=== PATIENT | male | born 1980 | race Caucasian/White ===

== ENCOUNTER → 2018-05-22 | Outpatient (CLI) | payer OTHER ==
--- NOTE | 2018-05-22 12:18 | EXE ---
[facility] [place] [address] STRESS ECHOCARDIOGRAM Name: MILANDAVEY HUMPHREYS ORLIN Room #: REG Marita#: [id number] Admission: 05/22/18 Attend Phys: Hossein Tripp Discharge: Date of : 78 Date of Service: 05/22/18 1218 Report #: [id number] THIS REPORT FOR: //name// APPROVED REPORT Study performed: 05/22/2018 09:48:48 Exam: Stress Echocardiogram Indication: Syncope Patient Location: Out-Patient Stress Nurse: Lita Cabrera RN Room #: Echo lab 2 Status: routine Ht: 5 ft 7 in HR: 53 bpm BP: 126/74 mmHg Rhythm: Bradycardia Medical History Medical History: Smoking Allergies: No known drug allergies Cardiac Risk Factors: Smoking Exercise History: Physically active Procedure The patient underwent an Exercise Stress Test using the [place] Protocol. Blood pressure, heart rate, and EKG were monitored. An Echocardiogram was performed by resident care technician in four stages in quad fashion. At peak stress, four selected images were obtained and placed side by side with resting images for comparison. Stress Test Details Stress Test: Exercise stress testing was performed using a [place] protocol. HR Resting HR: 53 bpm Max Heart Rate (APMHR): 181 bpm Max HR Achieved: 151 bpm Target HR (85% APMHR): 153 bpm % of APMHR: 83 Recovery HR: 81 bpm HR response to stress: Normal HR response to stress BP Resting BP: 126/74 mmHg Max BP: 178/70 mmHg Recovery BP: 142/80 mmHg [facility] [address] [address] STRESS ECHOCARDIOGRAM Name: DAVEY YATES Room #: REG [facility]#: [id number] Admission: 05/22/18 Attend Phys: Hossein Tripp Discharge: Date of : 78 Date of Service: 05/22/18 1218 Report #: [id number] BP response to stress: Normal blood pressure response to stress. ECG Resting ECG: Sinus Rhythm Stress ECG: Sinus Tachycardia Arrhythmia: None Recovery ECG: Sinus Rhythm Clinical Reason for Termination: Maximal effort Exercise duration: 10 min 52 sec Highest Stage Achieved: Stage 4: 4.2 mph at 16% grade. Exercise capacity: 13.7 METs Overall Exercise Capacity for Age: Good Stress ECG Conclusion 1. subjectively negative for ischemia 2.electrocardiographically negative for ischemia 3. satisfactory functional capacity Pre-Stress Echo The resting Echocardiogram showed normal left ventricular contractility with an estimated Ejection Fraction of about 50%. Post-Stress Echo The stress Echocardiogram showed normal left ventricular contractility with an estimated Ejection Fraction of about >55%. Clinical Normal augmentation of myocardial wall segments using a 17 segment model. Conclusion Clinical Response: Non-ischemic Exercise Capacity: satisfactory Stress ECG Response: Non-ischemic Stress Echo Images: Non-ischemic 1. low risk study No prior study available for comparison. Other Information Study Quality: Adequate [facility] [address] [place] [address] STRESS ECHOCARDIOGRAM Name: DAVEY YATES Room #: REG CL Wilian.#: [id number] Admission: 05/22/18 Attend Phys: Hossein Tripp Discharge: Date of : 78 Date of Service: 05/22/188 Report #: [id number] <Conclusion> 1. low risk study <ELECTRONICALLY SIGNED> By: Hossein Hook MD 05/22/188 17 17 Hossein Hook MD /INF
== END ==
LOC: CV 07:05
DX: R55 Syncope and collapse (principal); R07.89 Other chest pain; Z87.891 Personal history of nicotine dependence

== ENCOUNTER → 2021-02-05 | Outpatient (CLI) | payer OTHER ==
[2021-02-05 14:50] LABS: ABSOLUTE NEUTROPHILS 1.9 thou/uL (1.4-8.2); BASOPHILS 0.9 % (0.0-2.0); EOSINOPHILS 3.5 % (0.0-3.0); HEMATOCRIT 44.2 % (42.0-52.0); HEMOGLOBIN 14.9 gm/dL (14.0-18.0); LYMPHOCYTES 31.9 % (24.0-44.0); MCH 31.3 pg (26.0-34.0); MCHC 33.7 g/dL (28.0-37.0); PLATELET COUNT 158 thou/uL (150-400); POLYS 53.7 % (36.0-66.0); RBC 4.75 mil/uL (4.50-6.00); RDW 13.3 % (10.5-14.5); WBC 3.5 thou/uL (4.0-11.0)
[2021-02-05 15:18] LABS: ALBUMIN 4.2 g/dL (3.4-5.0); ANION GAP 9 mmol/L (7-16); BUN 16 mg/dL (7-18); CALCIUM 8.9 mg/dL (8.5-10.1); CHLORIDE 104 mmol/L (98-107); CO2 28 mmol/L (21-32); GLUCOSE 85 mg/dL (74-106); POTASSIUM 4.1 mmol/L (3.5-5.1); SGOT 17 U/L (15-37); SGPT 21 U/L (16-63); SODIUM 141 mmol/L (136-145); TOTAL BILIRUBIN 0.5 mg/dL (0.2-1.0); TOTAL PROTEIN 7.6 g/dL (6.4-8.2)
[2021-02-05 15:38] LABS: CHOLESTEROL 183 mg/dL (<200); HDL CHOLESTEROL 57 mg/dL (>40); LDL CHOLESTEROL 109 mg/dL (<100); TC:HDL 3.2 Ratio (Not establshd); TRIGLYCERIDE 87 mg/dL (<150); VLDL 17 mg/dL (<40)
[2021-02-06 02:06] LABS: GLYCOHEMOGLOBIN (HGB A1C) 5.4 % (4.8-5.6)
== END ==
LOC: LAB 14:07
PROVIDERS: ATTEND Family Medicine
DX: M25.521 Pain in right elbow (principal); R53.83 Other fatigue; E78.5 Hyperlipidemia, unspecified; E55.9 Vitamin D deficiency, unspecified

== ENCOUNTER → 2021-02-05 | Outpatient (CLI) | payer OTHER | LOC: RAD 14:12 | PROVIDERS: ATTEND Family Medicine | DX: M25.521 Pain in right elbow (principal) ==